=== PATIENT | male | born 1955 | race Caucasian/White ===

== ENCOUNTER 2019-05-10 10:09 | Emergency (ER) | payer SELFPAY ==
[~2019-05-10] VITALS: Ht 180.3 cm; Wt 65.8 kg
== END 2019-05-10 11:12 | disposition home or self-care (01) ==
LOC: ER 10:09
DX: H11.32 Conjunctival hemorrhage, left eye (principal); H11.422 Conjunctival edema, left eye
CPT/HCPCS: 99283